=== PATIENT | female | born 1945 | race Caucasian/White ===

== ENCOUNTER 2017-10-28 02:43 | Inpatient (IN) | payer OTHER, BC ==
[~2017-10-28] VITALS: Ht 165.1 cm; Wt 84.0 kg
[~2017-10-28 02:43] MED LIST: AMBIEN CR12.5 MG PO; ATORVASTATIN CA10 MG PO; BENZONATATE100 MG PO; IBANDRONATE SO150 MG PO; K-PHOS NEUTRAL250 M1 PO; LASIX20 MG PO; MELATONIN5 M1 PO; METHADONE10 MG PO; POTASSIUM CHLO10 ME3 PO
[2017-10-28 03:55] LABS: HEMATOCRIT 44.5 % (36.0-46.0); MCH 29.9 PG (29.0-34.0); MCHC 31.5 G/DL (30.0-36.0); MCV 94.9 FL (83-99); PLATELET COUNT 195 K/uL (156-360); RBC DIS.WIDTH-CV 14.7 % (11.8-14.6); RBC DIS.WIDTH-SD 51.1 % (39-53); RED BLOOD COUNT 4.69 M/uL (3.80-5.20); WHITE BLOOD COUNT 14.1 K/uL (4.1-10.2)
[2017-10-28 04:09] LABS: ALBUMIN 3.7 g/dL (3.2-4.8); CHLORIDE 102 mEq/L (99-109); POTASSIUM 4.4 mEq/L (3.7-5.4); SODIUM 138 mEq/L (136-147)
[2017-10-28 04:11] LABS: GLUCOSE 140 mg/dL (70-99)
[2017-10-28 04:13] LABS: TOTAL BILIRUBIN 0.4 mg/dL (0.0-1.0)
[2017-10-28 04:15] LABS: ALKALINE PHOSPHATASE 85 IU/L (3-129); CREATININE 0.9 mg/dL (0.6-1.3); GFR ESTIMATE (CALCULATED) > 59 mL/min/
[2017-10-28 04:16] LABS: UREA NITROGEN (BUN) 14 mg/dL (9-23)
[2017-10-28 04:17] LABS: AST (GOT) 10 IU/L (2-34); CARBON DIOXIDE (BICARBONATE) 32.6 MEQ/L (20-31)
[2017-10-28 04:18] LABS: ALT (GPT) 12 IU/L (3-49); LIPASE 8 U/L (1.0-51.0)
[2017-10-28 04:21] LABS: TROP-I INTERPRETATION NEGATIVE; TROPONIN-I < 0.01 ng/mL (0.0-0.30)
[2017-10-28 05:22] LABS: BASE EXCESS 0.1 mEq/L (-3 to +3); BICARBONATE 26.9 mEq/L (22-26); CARBOXY HGB 1.4 % (0-5); COMMENTS - BLOOD GASES A+C+; DEVICE VENT; FI02 50 %; METHEMOGLOBIN 1.3 % (0-1.5); MODE SPONT NIV; PCO2 51 mm Hg (35-45); PEEP 6 CM/H20; PO2 219 mm Hg (80-100); PRES. SUPPORT 14 CM/H2O; SITE RR; TOTAL RESP RATE 14 resp/min; pH 7.33 (7.35-7.45)
[2017-10-28] MEDS ORDERED: BENZONATATE100 MG PO (07:37)
[2017-10-28] MEDS ORDERED: PROAIR HFA8.5 GM IH (07:38)
[2017-10-28] MEDS ORDERED: GABAPENTIN300 MG PO (07:39)
[2017-10-28] MEDS ORDERED: ZOLPIDEM TART12.5 MG PO (07:39)
[2017-10-28 10:19] LABS: TROP-I INTERPRETATION NEGATIVE; TROPONIN-I < 0.01 ng/mL (0.0-0.30)
[2017-10-28 11:23] VITALS: BP 115/73
[2017-10-28 16:16] VITALS: BP 130/71
[2017-10-28 16:17] LABS: TROP-I INTERPRETATION NEGATIVE; TROPONIN-I < 0.01 ng/mL (0.0-0.30)
[2017-10-29] VITALS (7 sets, daily range): BP systolic 120–133; BP diastolic 58–79
[2017-10-29 04:57] LABS: HEMATOCRIT 39.5 % (36.0-46.0); HEMOGLOBIN 12.5 G/DL (11.9-15.5); MCH 29.8 PG (29.0-34.0); MCHC 31.6 G/DL (30.0-36.0); PLATELET COUNT 218 K/uL (156-360); RBC DIS.WIDTH-CV 14.6 % (11.8-14.6); RBC DIS.WIDTH-SD 50.8 % (39-53); WHITE BLOOD COUNT 26.7 K/uL (4.1-10.2)
[2017-10-29 05:24] LABS: CHLORIDE 108 MEQ/L (99-109); CREATININE 0.6 MG/DL (0.6-1.3); GFR ESTIMATE (CALCULATED) > 59 mL/min/; GLUCOSE 132 mg/dL (70-99); POTASSIUM 4.4 MEQ/L (3.7-5.4); SODIUM 141 MEQ/L (136-147); UREA NITROGEN (BUN) 11 mg/dL (9-23)
[2017-10-30 05:05] VITALS: BP 130/77
[2017-10-30 07:16] LABS: HEMATOCRIT 36.8 % (36.0-46.0); HEMOGLOBIN 11.8 G/DL (11.9-15.5); MCH 29.9 PG (29.0-34.0); MCHC 32.1 G/DL (30.0-36.0); MCV 93.4 FL (83-99); PLATELET COUNT 212 K/uL (156-360); RBC DIS.WIDTH-SD 51.5 % (39-53); RED BLOOD COUNT 3.94 M/uL (3.80-5.20); WHITE BLOOD COUNT 23.1 K/uL (4.1-10.2)
[2017-10-30 11:13] VITALS: BP 126/78
[2017-10-30 14:23] LABS: HEMOGLOBIN A1c (GLYCOHEMOGLOB) 5.8 % (Below 5.7)
[2017-10-30 15:02] VITALS: BP 114/63
[2017-10-30 19:24] VITALS: BP 120/60
[2017-10-30 23:17] VITALS: BP 118/70
[2017-10-31 04:26] VITALS: BP 126/61
[2017-10-31 06:53] LABS: HEMATOCRIT 36.3 % (36.0-46.0); HEMOGLOBIN 11.7 G/DL (11.9-15.5); MCH 29.6 PG (29.0-34.0); MCHC 32.2 G/DL (30.0-36.0); MCV 91.9 FL (83-99); PLATELET COUNT 193 K/uL (156-360); RBC DIS.WIDTH-SD 50.5 % (39-53); RED BLOOD COUNT 3.95 M/uL (3.80-5.20)
[2017-10-31 07:32] VITALS: BP 131/70
[2017-10-31 11:41] VITALS: BP 111/57
[2017-10-31] MEDS ORDERED: SPIRIVA RESPIMAT4 GM IH (14:06)
[2017-10-31] MEDS ORDERED: DOXYCYCLINE HY100 M3 PO (14:07)
[2017-10-31] MEDS ORDERED: MONTELUKAST SOD10 MG PO (14:08)
[2017-10-31] MEDS ORDERED: PREDNISONE10 MG PO (14:11)
[2017-10-31 15:36] VITALS: BP 108/58
== END 2017-10-31 17:17 | disposition home or self-care (01) | DRG 189 ==
LOC: EME → EDBD 02:43 → EME 02:43 → EDOF 07:58 → 3EAST 07:58 → ENRESERV 07:59 → 3EAST 11:01
PROVIDERS: Emergency Medicine; Internal Medicine; Physician Assistant
PROC: 5A09357 Assistance with Respiratory Ventilation, Less than 24 Consecutive Hours, Continuous Positive Airway Pressure (ICD-10-PCS; principal; 2017-10-28)
DX: J96.01 Acute respiratory failure with hypoxia (principal); J96.02 Acute respiratory failure with hypercapnia; J44.1 Chronic obstructive pulmonary disease with (acute) exacerbation; J44.0 Chronic obstructive pulmonary disease with (acute) lower respiratory infection; J20.9 Acute bronchitis, unspecified; E87.2 Acidosis; J45.41 Moderate persistent asthma with (acute) exacerbation; G89.4 Chronic pain syndrome; E78.5 Hyperlipidemia, unspecified; M81.0 Age-related osteoporosis without current pathological fracture; Z77.22 Contact with and (suspected) exposure to environmental tobacco smoke (acute) (chronic); Z79.891 Long term (current) use of opiate analgesic; J30.2 Other seasonal allergic rhinitis; E66.9 Obesity, unspecified; Z68.30 Body mass index [BMI] 30.0-30.9, adult
CPT/HCPCS: 36600; 71045; 80048; 80053; 82803; 83036; 83605; 83690; 83880; 84484; 85027; 87040; 90686; 93005; 94002; 94640; 94640 76; 94644; 94760; 94799; 99202; 99281; 99284; J0696; J1100; J1650; J2920; J2930; J3475; J7030; J7050; J7512; J7644